=== PATIENT | female | born 1985 | race Two or more races ===

== ENCOUNTER 2019-04-10 10:13 | Outpatient (CLI) | payer OTHER ==
[~2019-04-10] VITALS: Ht 154.9 cm; Wt 93.2 kg
[2019-04-10] MEDS ORDERED: METF10007 PO (10:26)
[2019-04-10] MEDS ORDERED: ESCI20TA10 PO (10:26)
[2019-04-10] MEDS ORDERED: PREN1TAB60 PO (10:26)
[2019-04-10 10:32] VITALS: BP 133/90
[2019-04-10 10:57] LABS: BASOPHILS # (AUTO) 0.04 x10^3/uL (0-0.1); BASOPHILS % (AUTO) 0 % (0-1); EOSINOPHILS # (AUTO) 0.21 x10^3/uL (0-0.4); EOSINOPHILS % (AUTO) 2 % (1-7); LYMPHOCYTES # (AUTO) 2.12 x10^3/uL (1-3.4); LYMPHOCYTES % (AUTO) 17 % (22-44); MD NO; MEAN CORPUSCULAR HEMOGLOBIN 30.2 pg (27.0-34.8); MEAN CORPUSCULAR HGB CONC 33.9 g/dL (32.4-35.8); MEAN CORPUSCULAR VOLUME 89.2 fL (80-100); MEAN PLATELET VOLUME 7.9 fL (7.4-10.4); MONOCYTES # (AUTO) 0.94 x10^3/uL (0.2-0.8); MONOCYTES % (AUTO) 8 % (2-9); NEUTROPHILS # (AUTO) 9.28 x10^3/uL (1.8-6.8); NEUTROPHILS % (AUTO) 74 % (42-75); PLATELET COUNT 229 x10^3/uL (130-400); RED BLOOD COUNT 4.45 x10^6/uL (3.82-5.3); RED CELL DISTRIBUTION WIDTH 13.8 % (9.6-15.2)
[2019-04-10 11:04] LABS: ALANINE AMINOTRANSFERASE 21 U/L (12-78); ALBUMIN 2.5 g/dL (3.4-5.0); ANION GAP 12 mmol/L (5-15); CALCIUM 8.4 mg/dL (8.5-10.1); CHLORIDE 107 mmol/L (98-107); CREATININE 0.48 mg/dL (0.55-1.02)
[2019-04-10 11:08] LABS: ALKALINE PHOSPHATASE 141 U/L (45-117); BILIRUBIN,TOTAL 0.1 mg/dL (0.2-1.0); TOTAL PROTEIN 6.8 g/dL (6.4-8.2)
[2019-04-10 11:16] LABS: BILIRUBIN, DIRECT < 0.1 mg/dL (0.1-0.2)
[2019-04-10 11:18] LABS: CREATININE,URINE RANDOM 22.5 mg/dL
== END 2019-04-10 12:19 | disposition home or self-care (01) ==
LOC: LDOP 10:13
PROVIDERS: ATTEND Obstetrics & Gynecology
DX: O13.3 Gestational [pregnancy-induced] hypertension without significant proteinuria, third trimester (principal); Z3A.30 30 weeks gestation of pregnancy
CPT/HCPCS: 36415; 59025; 80053; 82248; 82570; 84156; 84550; 85025; 99201; G0463

== ENCOUNTER 2019-04-11 10:45 | Outpatient (CLI) | payer OTHER ==
[~2019-04-11] VITALS: Ht 154.9 cm; Wt 93.1 kg
[~2019-04-11 10:45] MED LIST: ESCI20TA10 PO; METF10007 PO; PREN1TAB60 PO
[2019-04-11 10:49] VITALS: BP 130/79
== END 2019-04-11 13:30 | disposition home or self-care (01) ==
LOC: LDOP 10:45
PROVIDERS: ATTEND Obstetrics & Gynecology
DX: O13.3 Gestational [pregnancy-induced] hypertension without significant proteinuria, third trimester (principal); Z3A.31 31 weeks gestation of pregnancy
CPT/HCPCS: 59025; 76819; 99211; G0463

== ENCOUNTER 2019-04-15 18:41 | Outpatient (CLI) | payer OTHER ==
[~2019-04-15] VITALS: Ht 154.9 cm; Wt 93.6 kg
[2019-04-15 18:56] VITALS: BP 136/68
== END 2019-04-15 19:47 | disposition home or self-care (01) ==
LOC: LDOP 18:41
PROVIDERS: ATTEND Obstetrics & Gynecology
DX: O26.893 Other specified pregnancy related conditions, third trimester (principal); O36.8130 Decreased fetal movements, third trimester, not applicable or unspecified; O99.283 Endocrine, nutritional and metabolic diseases complicating pregnancy, third trimester; O14.93 Unspecified pre-eclampsia, third trimester; E28.2 Polycystic ovarian syndrome; F41.9 Anxiety disorder, unspecified; Z3A.31 31 weeks gestation of pregnancy
CPT/HCPCS: 59025; 99211; G0463

== ENCOUNTER 2019-05-16 15:42 | Observation (INO) | payer OTHER ==
[~2019-05-16] VITALS: Ht 154.9 cm; Wt 97.5 kg
[2019-05-16 16:14] LABS: BASOPHILS # (AUTO) 0.02 x10^3/uL (0-0.1); BASOPHILS % (AUTO) 0 % (0-1); EOSINOPHILS # (AUTO) 0.18 x10^3/uL (0-0.4); EOSINOPHILS % (AUTO) 2 % (1-7); LYMPHOCYTES # (AUTO) 2.67 x10^3/uL (1-3.4); LYMPHOCYTES % (AUTO) 25 % (22-44); MD NO; MEAN CORPUSCULAR HEMOGLOBIN 30.4 pg (27.0-34.8); MEAN CORPUSCULAR VOLUME 89.3 fL (80-100); MEAN PLATELET VOLUME 8.8 fL (7.4-10.4); MONOCYTES # (AUTO) 0.95 x10^3/uL (0.2-0.8); MONOCYTES % (AUTO) 9 % (2-9); NEUTROPHILS # (AUTO) 7.08 x10^3/uL (1.8-6.8); NEUTROPHILS % (AUTO) 65 % (42-75); PLATELET COUNT 154 x10^3/uL (130-400); RED BLOOD COUNT 4.33 x10^6/uL (3.82-5.3); RED CELL DISTRIBUTION WIDTH 14.8 % (9.6-15.2)
[2019-05-16 16:23] LABS: ALANINE AMINOTRANSFERASE 26 U/L (12-78); ALBUMIN 2.4 g/dL (3.4-5.0); ANION GAP 8 mmol/L (5-15); BILIRUBIN, DIRECT < 0.1 mg/dL (0.1-0.2); CALCIUM 8.7 mg/dL (8.5-10.1); CHLORIDE 110 mmol/L (98-107); CREATININE 0.53 mg/dL (0.55-1.02)
[2019-05-16 16:25] LABS: ALKALINE PHOSPHATASE 195 U/L (45-117); TOTAL PROTEIN 6.5 g/dL (6.4-8.2)
[2019-05-16 16:26] LABS: BILIRUBIN,TOTAL < 0.1 mg/dL (0.2-1.0)
[2019-05-16 16:42] LABS: MICROSCOPIC NOT IND
[2019-05-16 16:57] LABS: CREATININE,URINE RANDOM 55.9 mg/dL
[2019-05-16 20:28] VITALS: BP 136/80
[2019-05-16] MEDS ORDERED: DIPHENHYDRAMINE 25 MG CAPSULE PO PRN (21:30)
[2019-05-16] MEDS ORDERED: metFORMIN 500 MG TABLET ONE (21:37)
[2019-05-16] MEDS: metFORMIN 500 MG TABLET PO SCH (21:42)
[2019-05-17] MEDS: metFORMIN 500 MG TABLET PO SCH (00:25)
[2019-05-17] MEDS ORDERED: DIPHENHYDRAMINE 25 MG CAPSULE PO PRN (02:30)
[2019-05-17 05:50] LABS: BASOPHILS # (AUTO) 0.04 x10^3/uL (0-0.1); BASOPHILS % (AUTO) 0 % (0-1); EOSINOPHILS # (AUTO) 0.15 x10^3/uL (0-0.4); EOSINOPHILS % (AUTO) 1 % (1-7); LYMPHOCYTES # (AUTO) 3.42 x10^3/uL (1-3.4); LYMPHOCYTES % (AUTO) 29 % (22-44); MD NO; MEAN CORPUSCULAR HEMOGLOBIN 30.4 pg (27.0-34.8); MEAN CORPUSCULAR HGB CONC 33.6 g/dL (32.4-35.8); MEAN CORPUSCULAR VOLUME 90.5 fL (80-100); MEAN PLATELET VOLUME 9.1 fL (7.4-10.4); MONOCYTES # (AUTO) 0.89 x10^3/uL (0.2-0.8); MONOCYTES % (AUTO) 8 % (2-9); NEUTROPHILS # (AUTO) 7.22 x10^3/uL (1.8-6.8); NEUTROPHILS % (AUTO) 62 % (42-75); PLATELET COUNT 147 x10^3/uL (130-400); RED BLOOD COUNT 4.32 x10^6/uL (3.82-5.3); RED CELL DISTRIBUTION WIDTH 14.7 % (9.6-15.2)
[2019-05-17 05:55] LABS: ALBUMIN 2.3 g/dL (3.4-5.0); ANION GAP 9 mmol/L (5-15); CALCIUM 8.8 mg/dL (8.5-10.1); CHLORIDE 110 mmol/L (98-107)
[2019-05-17 06:00] LABS: ALANINE AMINOTRANSFERASE 26 U/L (12-78); ALKALINE PHOSPHATASE 192 U/L (45-117); BILIRUBIN,TOTAL 0.2 mg/dL (0.2-1.0); CREATININE 0.61 mg/dL (0.55-1.02); TOTAL PROTEIN 6.2 g/dL (6.4-8.2)
[2019-05-17] MEDS ORDERED: ESCITALOPRAM 10MG TABLET PO SCH (09:00)
[2019-05-17] MEDS ORDERED: PRENATAL VIT/IRON/FA 1 EACH TABLET PO SCH (09:00)
== END 2019-05-17 07:00 | disposition home or self-care (01) ==
LOC: LDOP 15:42 → LDIP 17:57
PROVIDERS: ADMIT Obstetrics & Gynecology; ATTEND Obstetrics & Gynecology
DX: O13.3 Gestational [pregnancy-induced] hypertension without significant proteinuria, third trimester (principal); Z3A.36 36 weeks gestation of pregnancy
CPT/HCPCS: 36415; 59025; 80053; 81003; 82248; 82570; 84156; 84550; 85025; 87081; 99211; G0378; Q0163; G0463

== ENCOUNTER 2019-05-19 09:49 | Inpatient (IN) | payer OTHER ==
[~2019-05-19] VITALS: Ht 154.9 cm; Wt 82.0 kg
[2019-05-19] MEDS ORDERED: OXYTOCIN 30U/ 0.9% NaCL 500ML 500 ML IV PRN (09:54)
[2019-05-19] MEDS ORDERED: D5%-LACTATED RINGERS 1,000 ML IV SCH (09:54)
[2019-05-19] MEDS ORDERED: OXYTOCIN 30U/ 0.9% NaCL 500ML 500 ML IV ONE (09:54)
[2019-05-19] MEDS ORDERED: ONDANSETRON 2MG/ML, 2ML IVPush PRN (10:00)
[2019-05-19] MEDS ORDERED: FENTANYL PF 100 MCG/2ML IVPush PRN (10:00)
[2019-05-19] MEDS ORDERED: CALCIUM CARBONATE 500 MG TAB.CHEW PO PRN (10:00)
[2019-05-19] MEDS ORDERED: ALUMINUM/MAG/SIMETHICONE 30 ML UDC PO PRN (10:00)
[2019-05-19] MEDS ORDERED: CALCIUM GLUCONATE 4.6 MEQ/10 ML IV PRN (10:00)
[2019-05-19] MEDS ORDERED: TERBUTALINE 1 MG/ML, 1ML IVPush PRN (10:00)
[2019-05-19] MEDS ORDERED: SODIUM CITRATE/CITRIC ACID 30 ML UDC PO PRN (10:00)
[2019-05-19] MEDS ORDERED: TERBUTALINE 1 MG/ML, 1ML SQ PRN (10:00)
[2019-05-19] MEDS ORDERED: MAGNESIUM SULFATE PMX 4GM/100M 100 ML IVPB ONE (10:00)
[2019-05-19] MEDS ORDERED: PLEASE ENTER HEIGHT AND WEIGHT MC SCH (10:30)
[2019-05-19 10:34] LABS: BASOPHILS # (AUTO) 0.03 x10^3/uL (0-0.1); BASOPHILS % (AUTO) 0 % (0-1); EOSINOPHILS # (AUTO) 0.12 x10^3/uL (0-0.4); EOSINOPHILS % (AUTO) 1 % (1-7); LYMPHOCYTES # (AUTO) 2.32 x10^3/uL (1-3.4); LYMPHOCYTES % (AUTO) 23 % (22-44); MD NO; MEAN CORPUSCULAR HEMOGLOBIN 30.3 pg (27.0-34.8); MEAN CORPUSCULAR HGB CONC 33.8 g/dL (32.4-35.8); MEAN CORPUSCULAR VOLUME 89.7 fL (80-100); MONOCYTES # (AUTO) 0.81 x10^3/uL (0.2-0.8); MONOCYTES % (AUTO) 8 % (2-9); NEUTROPHILS # (AUTO) 7.02 x10^3/uL (1.8-6.8); NEUTROPHILS % (AUTO) 68 % (42-75); PLATELET COUNT 154 x10^3/uL (130-400); RED BLOOD COUNT 4.44 x10^6/uL (3.82-5.3); RED CELL DISTRIBUTION WIDTH 14.8 % (9.6-15.2)
[2019-05-19 10:46] LABS: ALANINE AMINOTRANSFERASE 32 U/L (12-78); ALBUMIN 2.3 g/dL (3.4-5.0); ANION GAP 9 mmol/L (5-15); CALCIUM 9.2 mg/dL (8.5-10.1); CHLORIDE 108 mmol/L (98-107); CREATININE 0.62 mg/dL (0.55-1.02)
[2019-05-19 10:48] LABS: ALKALINE PHOSPHATASE 193 U/L (45-117); TOTAL PROTEIN 6.5 g/dL (6.4-8.2)
[2019-05-19] MEDS ORDERED: LIDOCAINE 1%, 20ML ONE ×2 (10:56→10:57)
[2019-05-19] MEDS ORDERED: NEWBORN KIT ONE (10:56)
[2019-05-19] MEDS ORDERED: OXYTOCIN 30U/ 0.9% NaCL 500ML 500 ML ONE (10:57)
[2019-05-19] MEDS ORDERED: MISOPROSTOL 200 MCG TABLET ONE (10:57)
[2019-05-19 11:00] LABS: BILIRUBIN,TOTAL 0.2 mg/dL (0.2-1.0)
[2019-05-19 11:01] LABS: BILIRUBIN, DIRECT < 0.1 mg/dL (0.1-0.2)
[2019-05-19] MEDS ORDERED: MISOPROSTOL 25 MCG TABLET ONE ×3 (11:03→19:49)
[2019-05-19] MEDS: MISOPROSTOL 25 MCG TABLET VG PRN ×3 (11:10→20:01)
[2019-05-19] MEDS: LACTATED RINGERS 1,000 ML IV SCH ×2 (11:11→20:00)
[2019-05-19] MEDS: MAGNESIUM SULF. PMX 20GM/500ML 500 ML IV SCH ×2 (11:12→19:13)
[2019-05-19] MEDS ORDERED: ACETAMINOPHEN 325 MG TABLET ONE (17:53)
[2019-05-19] MEDS: ACETAMINOPHEN 325 MG TABLET PO PRN (17:56)
[2019-05-19] MEDS ORDERED: hydrALAzine 20 MG/ML, 1ML ONE ×2 (19:05→22:47)
[2019-05-19] MEDS ORDERED: hydrALAzine 20 MG/ML, 1ML IVPush ONE ×2 (19:30)
[2019-05-19] MEDS ORDERED: LABETALOL 5 MG/ML SYR. (IV ONLY) IVPush ONE (19:30)
[2019-05-19] MEDS ORDERED: FENTANYL/BUPIV./NS/PF 250 ML EPIDCONT SCH (20:24)
[2019-05-19] MEDS ORDERED: LACTATED RINGERS 1,000 ML IV SCH (20:24)
[2019-05-19] MEDS ORDERED: LACTATED RINGERS 1,000 ML IVBOLUS PRN (20:30)
[2019-05-19] MEDS ORDERED: EPHEDRINE 50 MG/ML, 1ML IVPush PRN (20:30)
[2019-05-19 20:35] VITALS: BP 142/86
[2019-05-19 21:58] VITALS: BP 140/89
[2019-05-19] MEDS ORDERED: FENTANYL PF 500 MCG, BUPIVACAINE/PF 0.5%, 30ML 62.5 ML in SODIUM CHLORIDE 0.9% 177.5 ML EPIDCONT SCH (23:00)
[2019-05-19] MEDS ORDERED: FENTANYL PF 100 MCG/2ML ONE (23:10)
[2019-05-19] MEDS ORDERED: BUPIVACAINE 0.25% ONE ×2 (23:45→23:50)
[2019-05-19] MEDS ORDERED: LIDOCAINE/PF 1.5%-EPI 1:200K, 30ML ONE (23:50)
[2019-05-19] MEDS ORDERED: FENTANYL/BUPIV./NS/PF 250 ML EPIDCONT ONE (23:50)
[2019-05-20] MEDS ORDERED: ACETAMINOPHEN 325 MG TABLET ONE (00:28)
[2019-05-20] MEDS ORDERED: FENTANYL/BUPIV./NS/PF 250 ML EPIDCONT SCH (00:32)
[2019-05-20] MEDS ORDERED: LACTATED RINGERS 1,000 ML IV SCH (00:32)
[2019-05-20] MEDS: ACETAMINOPHEN 325 MG TABLET PO PRN (00:44)
[2019-05-20] MEDS ORDERED: EPHEDRINE 50 MG/ML, 1ML IVPush PRN (01:00)
[2019-05-20] MEDS ORDERED: LACTATED RINGERS 1,000 ML IVBOLUS PRN (01:00)
[2019-05-20] MEDS ORDERED: LACTATED RINGERS 1,000 ML INTUTE PRN (01:30)
[2019-05-20] MEDS ORDERED: LACTATED RINGERS 1,000 ML INTUTE SCH (01:30)
[2019-05-20] MEDS: MAGNESIUM SULF. PMX 20GM/500ML 500 ML IV SCH ×2 (05:05→10:46)
[2019-05-20] MEDS ORDERED: OXYTOCIN 30U/ 0.9% NaCL 500ML 500 ML IV SCH ×2 (05:46→09:41)
[2019-05-20] MEDS ORDERED: BISACODYL 10 MG SUPP PR PRN (06:00)
[2019-05-20] MEDS ORDERED: SIMETHICONE 80 MG CHEW TAB PO PRN ×2 (06:00→10:00)
[2019-05-20] MEDS ORDERED: ONDANSETRON 2MG/ML, 2ML IV PRN (06:00)
[2019-05-20] MEDS ORDERED: GLYCERIN ADULT SUPP PR PRN (06:00)
[2019-05-20] MEDS ORDERED: TRANEXAMIC ACID 100 MG/ML, 10ML IV ONE (06:00)
[2019-05-20] MEDS ORDERED: IBUPROFEN 600 MG TABLET PO PRN (06:00)
[2019-05-20] MEDS ORDERED: OXYcodone/APAP 5/325MG TABLET PO PRN ×3 (06:00→10:00)
[2019-05-20] MEDS ORDERED: MISOPROSTOL 200 MCG TABLET PR PRN (06:00)
[2019-05-20] MEDS ORDERED: METHYLERGONOVINE 0.2 MG/ML IM PRN (06:00)
[2019-05-20] MEDS ORDERED: METOCLOPRAMIDE 5 MG/ML, 2ML IV PRN (06:00)
[2019-05-20] MEDS ORDERED: ACETAMINOPHEN 325 MG TABLET PO PRN ×3 (06:00→10:00)
[2019-05-20] MEDS ORDERED: PRENATAL VIT/IRON/FA 1 EACH TABLET PO SCH (09:00)
[2019-05-20] MEDS ORDERED: DOCUSATE 100 MG CAPSULE PO PRN (10:00)
[2019-05-20] MEDS ORDERED: HYDROcodone/APAP 5/325 TABLET PO PRN ×2 (10:00)
[2019-05-20] MEDS ORDERED: OXYcodone IR 5MG TABLET PO PRN ×2 (10:00)
[2019-05-20] MEDS ORDERED: MEASLES,MUMPS&RUBELLA VACC/PF 0.5 ML SQ-VACC PRN (10:00)
[2019-05-20] MEDS ORDERED: DOCUSATE 100 MG CAPSULE ONE (10:14)
[2019-05-20] MEDS ORDERED: metFORMIN 500 MG TABLET ONE (10:14)
[2019-05-20] MEDS ORDERED: PRENATAL VIT/IRON/FA 1 EACH TABLET ONE (10:14)
[2019-05-20] MEDS: DOCUSATE 100 MG CAPSULE PO PRN (10:18)
[2019-05-20] MEDS: metFORMIN 500 MG TABLET PO SCH (10:18)
[2019-05-20] MEDS ORDERED: MAGNESIUM SULF. PMX 20GM/500ML 500 ML IV ONE (10:20)
[2019-05-20] MEDS ORDERED: OXYTOCIN 30U/ 0.9% NaCL 500ML 500 ML ONE (10:21)
[2019-05-20] MEDS: ESCITALOPRAM 10MG TABLET PO SCH (17:11)
[2019-05-20 17:13] LABS: BASOPHILS % (AUTO) 0 % (0-1); EOSINOPHILS # (AUTO) 0.05 x10^3/uL (0-0.4); EOSINOPHILS % (AUTO) 0 % (1-7); LYMPHOCYTES # (AUTO) 2.23 x10^3/uL (1-3.4); LYMPHOCYTES % (AUTO) 12 % (22-44); MD SCAN; MEAN CORPUSCULAR HGB CONC 33.4 g/dL (32.4-35.8); MEAN CORPUSCULAR VOLUME 89.8 fL (80-100); MEAN PLATELET VOLUME 8.9 fL (7.4-10.4); MONOCYTES # (AUTO) 1.07 x10^3/uL (0.2-0.8); MONOCYTES % (AUTO) 6 % (2-9); NEUTROPHILS # (AUTO) 16.09 x10^3/uL (1.8-6.8); NEUTROPHILS % (AUTO) 83 % (42-75); PLATELET COUNT 139 x10^3/uL (130-400); RED BLOOD COUNT 4.52 x10^6/uL (3.82-5.3); RED CELL DISTRIBUTION WIDTH 14.7 % (9.6-15.2)
[2019-05-20 19:30] VITALS: BP 129/68
[2019-05-21] MEDS ORDERED: MAGNESIUM SULF. PMX 20GM/500ML 500 ML IV ONE (00:18)
[2019-05-21] MEDS: MAGNESIUM SULF. PMX 20GM/500ML 500 ML IV SCH (00:23)
[2019-05-21 08:04] LABS: ANION GAP 8 mmol/L (5-15); CALCIUM 7.1 mg/dL (8.5-10.1); CHLORIDE 108 mmol/L (98-107)
[2019-05-21 08:06] LABS: BASOPHILS # (AUTO) 0.03 x10^3/uL (0-0.1); BASOPHILS % (AUTO) 0 % (0-1); EOSINOPHILS % (AUTO) 1 % (1-7); LYMPHOCYTES # (AUTO) 2.96 x10^3/uL (1-3.4); LYMPHOCYTES % (AUTO) 19 % (22-44); MD NO; MEAN CORPUSCULAR HEMOGLOBIN 30.1 pg (27.0-34.8); MEAN CORPUSCULAR HGB CONC 33.5 g/dL (32.4-35.8); MEAN CORPUSCULAR VOLUME 89.8 fL (80-100); MEAN PLATELET VOLUME 8.4 fL (7.4-10.4); MONOCYTES # (AUTO) 0.95 x10^3/uL (0.2-0.8); MONOCYTES % (AUTO) 6 % (2-9); NEUTROPHILS # (AUTO) 11.29 x10^3/uL (1.8-6.8); NEUTROPHILS % (AUTO) 74 % (42-75); PLATELET COUNT 138 x10^3/uL (130-400); RED BLOOD COUNT 4.06 x10^6/uL (3.82-5.3); RED CELL DISTRIBUTION WIDTH 15.1 % (9.6-15.2)
[2019-05-21 08:07] LABS: ALANINE AMINOTRANSFERASE 32 U/L (12-78); ALKALINE PHOSPHATASE 162 U/L (45-117); BILIRUBIN,TOTAL 0.2 mg/dL (0.2-1.0); CREATININE 0.63 mg/dL (0.55-1.02); TOTAL PROTEIN 5.9 g/dL (6.4-8.2)
[2019-05-21 08:40] VITALS: BP 143/86
[2019-05-21] MEDS: DOCUSATE 100 MG CAPSULE PO PRN (08:42)
[2019-05-21] MEDS: PRENATAL VIT/IRON/FA 1 EACH TABLET PO SCH ×2 (08:42→09:00)
[2019-05-21] MEDS: metFORMIN 500 MG TABLET PO SCH ×2 (08:42→17:13)
[2019-05-21] MEDS: ESCITALOPRAM 10MG TABLET PO SCH (08:57)
[2019-05-21 12:10] VITALS: BP 123/76
[2019-05-21 19:47] VITALS: BP 128/82
[2019-05-21] MEDS: IBUPROFEN 600 MG TABLET PO PRN (19:49)
[2019-05-22] MEDS: metFORMIN 500 MG TABLET PO SCH (07:54)
[2019-05-22] MEDS: IBUPROFEN 600 MG TABLET PO PRN (07:55)
[2019-05-22] MEDS: PRENATAL VIT/IRON/FA 1 EACH TABLET PO SCH (07:55)
[2019-05-22 08:00] VITALS: BP 144/68
[2019-05-22] MEDS: ESCITALOPRAM 10MG TABLET PO SCH (08:56)
[2019-05-22] MEDS ORDERED: IBUP-1222 PO (09:37)
[2019-05-22] MEDS ORDERED: MEASLES,MUMPS&RUBELLA VACC/PF 0.5 ML SQ-VACC ONE (12:30)
== END 2019-05-22 15:05 | disposition home or self-care (01) | DRG 807 ==
LOC: LDIP 09:49 → 2NE 05-20 12:53 → 2NW 05-21 09:33
PROVIDERS: ADMIT Obstetrics & Gynecology; ATTEND Obstetrics & Gynecology
PROC: 10E0XZZ Delivery of Products of Conception, External Approach (ICD-10-PCS; principal; 2019-05-20)
PROC: 0KQM0ZZ Repair Perineum Muscle, Open Approach (ICD-10-PCS; 2019-05-20)
PROC: 3E0R3BZ Introduction of Anesthetic Agent into Spinal Canal, Percutaneous Approach (ICD-10-PCS; 2019-05-20)
PROC: 00HU33Z Insertion of Infusion Device into Spinal Canal, Percutaneous Approach (ICD-10-PCS; 2019-05-20)
PROC: 10907ZC Drainage of Amniotic Fluid, Therapeutic from Products of Conception, Via Natural or Artificial Opening (ICD-10-PCS; 2019-05-20)
PROC: 3E033VJ Introduction of Other Hormone into Peripheral Vein, Percutaneous Approach (ICD-10-PCS; 2019-05-20)
DX: O14.14 Severe pre-eclampsia complicating childbirth (principal); Z37.0 Single live birth; O36.5930 Maternal care for other known or suspected poor fetal growth, third trimester, not applicable or unspecified; O43.123 Velamentous insertion of umbilical cord, third trimester; O70.1 Second degree perineal laceration during delivery; Z3A.36 36 weeks gestation of pregnancy; Z79.84 Long term (current) use of oral hypoglycemic drugs; Z83.3 Family history of diabetes mellitus; E28.2 Polycystic ovarian syndrome; O99.284 Endocrine, nutritional and metabolic diseases complicating childbirth
CPT/HCPCS: 36415; J3490; J7121; 80053; 82248; 83735; 84550; 85025; 86592; 86850; 86900; G0378; J3010; J0360; J2590; J3475; J7120